=== PATIENT | female | born 1980 | race Caucasian/White ===

== ENCOUNTER 2018-01-02 16:00 | Outpatient (RCR) | payer OTHER, SELFPAY | END 2018-01-02 17:00 | disposition home or self-care (01) | LOC: PT 16:00 | PROVIDERS: Visit Provider Orthopaedic Surgery Adult Reconstructive Orthopaedic Surgery | DX: M54.5 Low back pain (principal); M25.511 Pain in right shoulder | CPT/HCPCS: 97110 ==

== ENCOUNTER 2018-04-03 16:00 | Outpatient (RCR) | payer OTHER, SELFPAY | END 2018-04-03 16:01 | disposition home or self-care (01) | LOC: PT 16:00 | PROVIDERS: Visit Provider Orthopaedic Surgery Adult Reconstructive Orthopaedic Surgery | DX: I89.0 Lymphedema, not elsewhere classified (principal) | CPT/HCPCS: 97110; 97140; 97162 ==

== ENCOUNTER 2018-09-21 12:26 | Observation (INO) ==
--- NOTE | 2018-09-21 12:47 | Emergency Department Note ---
ED Disposition Clinical Impression: Cellulitis Disposition: Admitted as Observation Condition on Discharge: Good Referrals: Radha Lenz [Primary Care Provider] - Time of Disposition: 13:56 - Critical Care Critical Care Time: No Attestation: On , the high probability of a clinically significant, sudden or life threatening deterioration of the following system(s) required my full and direct attention, intervention and personal management. The time I documented below is in addition to time spent performing reported procedures but includes the following listed in this critical care notation. Medical Decision Making - Osiel Inquiry Pt receiving controlled substance: No Osiel was queried for this patient: No Vital Signs: 09/21/18 12:33 Temperature 98.5 F Temperature Source Oral Pulse Rate [Left Radial] 91 H Respiratory Rate 18 Blood Pressure [Right Arm] 132/82 Blood Pressure Mean [Right Arm] 98 Blood Pressure Source [Right Arm] Automatic Cuff Blood Pressure Position [Right Arm] Sitting 02 Sat by Pulse Oximetry 99 Oxygen Delivery Method Room Air - Lab Data Lab Results 09/21/18 12:45: WBC 10.2, RBC 4.04 L, Hgb 12.0 L, Hct 36.9 L, MCV 91.2, MCH 29.8, MCHC 32.7, RDW 14.1, Plt Count 264, MPV 7.1 L, Neut % (Auto) 66.6, Lymph % (Auto) 25.6, [place] % (Auto) 4.5, Eos % (Auto) 2.8, Baso % (Auto) 0.5, Neut # (Auto) 6.8, Lymph # (Auto) 2.6, [place] # (Auto) 0.5, Eos # (Auto) 0.3, Baso # (Auto) 0.1, ESR 26 H 09/21/18 12:45: Sodium 141, Potassium 3.8, Chloride 102, Carbon Dioxide 31, Anion Gap 11.8, BUN 12, Creatinine 0.65, Estimated Creat Clear 99, Estimated GFR 101, Est GFR ( Amer) 122, Glucose 115 H, Calcium 8.9, Total Bilirubin 0.2, AST 30, ALT 48, Alkaline Phosphatase 102, C-Reactive Protein 3.5 H, Total Protein 7.4, Albumin 3.3 L, Globulin 4.1 H, Albumin/Globulin Ratio 0.8 L 09/21/18 12:45: Lactate 1.4 Result diagrams: 09/21/18 12:45 09/21/18 12:45 Orders (Tests/Meds): ED MEDICATIONS Generic Name Dose Route Start Last Admin Trade Name Freq PRN Reason Stop Dose Admin Sodium Chloride 1,000 mls @ 500 mls/hr 09/21/18 13:00 09/21/18 13:07 Sod Chlor 0.9% 1000ml Bag IV 09/21/18 14:59 500 mls/hr .Q2H DRAGAN Administration Ceftriaxone Sodium 2 gm/ 100 mls @ 200 mls/hr 09/21/18 13:00 09/21/18 13:07 Sodium Chloride IV 10/05/18 12:59 200 mls/hr Q24H DRAGAN Administration Protocol Vancomycin HCl 2,500 mg/ 250 mls @ 125 mls/hr 09/21/18 13:30 Sodium Chloride IV 09/21/18 15:29 ONCE ONE Discontinued Medications Generic Name Dose Route Start Last Admin Trade Name Freq PRN Reason Stop Dose Admin Miscellaneous 1 each 09/21/18 13:00 Vancomycin Consult Request * 10/21/18 12:59 CONSULT PHARMACY [facility] Oxycodone/Acetaminophen 1 each 09/21/18 12:52 09/21/18 13:07 Percocet 10mg/325mg Tablet PO 09/21/18 12:53 1 each ONCE ONE Administration ORDERS Category Date Time Status Blood Culture Stat Micro 09/21/18 12:45 Received Wound Culture and Gram Stain Stat Micro 09/21/18 12:43 Ordered General Adult HPI - General Chief complaint: PAIN Stated complaint: Left leg Possible Cellulitis Time Seen by Provider: 09/21/18 12:44 Mode of Arrival: Ambulatory Limitations: No Limitations Description of Symptoms (Recalled from ER Triage Doc. by RN): c/o pain in her lower left leg that she has been seen a few places for antibiotics but states it has not gotten any better and the pain has increased - History of Present Illness HPI narrative: two week history of cellulitis, evaluated multiply including [facility]. On doxy and keflex, worsening pain - Related Data Home Medications Medication Instructions Recorded Confirmed Citalopram Hydrobromide 20 mg PO DAILY 02/03/18 09/21/18 [Citalopram HBr] Furosemide [Furosemide 40MG tAB] 40 mg PO BID 02/03/18 09/21/18 Omeprazole [Omeprazole 40mg 40 mg PO DAILY 02/03/18 09/21/18 Capsule] levETIRAcetam [Keppra 500mg tablet] 500 mg PO BID 02/03/18 09/21/18 Potassium Chloride [Klor-con 20 20 meq PO DAILY 06/12/18 09/21/18 mEq tablet] albuterol sulfate HFA 90 1 puff INHALATION DAILY 16 Days 08/03/18 09/21/18 mcg/actuation aerosol inhaler #18 g cetirizine 10 mg tablet 10 mg PO DAILY 30 Days #30 tab 08/03/18 09/21/18 diclofenac sodium 75 mg 75 mg PO BID 30 Days #90 tab 08/03/18 09/21/18 tablet,delayed release montelukast 10 mg tablet 10 mg PO DAILY 30 Days #30 tab 08/03/18 09/21/18 Bacitracin [Bacitracin Zinc Oint 1 gm TOPICAL QID 09/21/18 09/21/18 30gm Tube] Phentermine HCl 37.5 mg PO DAILY 09/21/18 09/21/18 Sulfamethoxazole/Trimethoprim 1 each PO BID 09/21/18 09/21/18 [Bactrim DS tablet] cephALEXin [Keflex 500mg Cap] 500 mg PO Q6H 09/21/18 09/21/18 Allergies Allergy/AdvReac Type Severity Reaction Status Date / Time acetaminophen [From FIORICET] Allergy Unknown UNKNOWN Verified 08/03/18 14:32 butalbital [From FIORICET] Allergy Unknown UNKNOWN Verified 08/03/18 14:32 caffeine [From FIORICET] Allergy Unknown UNKNOWN Verified 08/03/18 14:32 codeine [CODEINE] Allergy Unknown SEIZURE, Verified 08/03/18 14:32 N/V [facility] History - Hepatitis A Screen Drug use history?: No High risk sexual behaviors?: No History of sexually transmitted infection?: No Currently employed?: No Childcare worker?: No Do you have indoor plumbing?: Yes Do you have electricity?: Yes Attestation statement:: This patient has been screened for Hepatitis A risk factors. I have reviewed the patient's past medical history: Yes Medical History: Reports:: Depression, Gastroesophageal Reflux Disease(GERD), Seizures Denies:: Cancer, Diabetes Mellitus Type 1, Diabetes Mellitus Type 2, Hypertension, MRSA Other Medical History: Reports: Other Laterality Cases: Bilateral: Tonsillectomy Other Surgeries: Yes: Appendectomy, Cholecystectomy, , Other Amputation: No Fractures: No - Social History Smoking Status: Current every day smoker Tobacco Type: cigarettes Alcohol Intake: never Substance Use Type: opiates - Psychiatric History Expresses thoughts of harming self/others: None Suicide Plan Description: No Plan Pschychiatric History:: Reports:: Depression Family Hx:: No significant family history ROS Obtained: Yes All systems reviewed & no additional complaints - Constitutional Constitutional: Reports system reviewed and no additional complaints, except as docu, Reports chills, Reports fatigue, Reports fever(s) - Eyes Eyes: Reports system reviewed and no additional complaints, except as docu, D enies change in vision - ENT Ears, Nose, Mouth, and Throat: Reports system reviewed and no additional complaints, except as docu, Denies sore throat, Denies throat swelling - Cardiovascular Cardiovascular: Reports system reviewed and no additional complaints, except as docu, Denies chest pain, Denies chest pain at rest, Denies diaphoresis - Respiratory Respiratory: Yes system reviewed and no additional complaints, except as docu, Yes chest congestion, Yes cough, No pain on inspiration, No pain with cough - Gastrointestinal Gastrointestingal: Reports: system reviewed and no additional complaints, except as docu. Denies: abdominal pain, diarrhea, vomiting - Musculoskeletal Musculoskeletal: Reports system reviewed and no additional complaints, except as docu, Denies muscle weakness - Integumentary/Breasts Skin/Breast: Reports system reviewed and no additional complaints, except as docu, Reports redness, Reports itching, Reports rash, Reports skin pain, Reports skin swelling, Reports wounds - Neurologic Neurologic: Reports system reviewed and no additional complaints, except as docu, Denies tingling/numbness/burning sensations, Denies seizure-like activity, Denies syncope - Hematologic/Lymphatic Henatologic/Lymphatic: Reports easy bleeding, Reports easy bruising Physical Exam - General General appearance: alert, in no apparent distress - Head Head exam: atraumatic - Eye Eye exam: Present: normal appearance. Absent: PERRL, EOMI, scleral icterus - ENT ENT exam: Present: normal exam, normal oropharynx, mucous membranes moist - Neck Neck exam: Present: normal inspection, full ROM - Respiratory Respiratory exam: Present: normal lung sounds bilaterally. Absent: respiratory distress, wheezes, stridor - Cardiovascular Cardiovascular exam: Present: regular rate, normal rhythm - Abdominal Exam Abdominal exam: Present: soft. Absent: tenderness - Extremities Exam Extremities exam: Present: tenderness, pedal edema, calf tenderness. Absent: normal inspection - Neurological Exam Neurological exam: Present: alert - Psychiatric Psychiatric exam: Present: normal affect, normal mood - Skin Skin exam: Present: warm, erythema, other (marked cellulitis, skin breakdown, weeping finch-yellow exudate). Absent: dry, intact, normal color, cyanosis
[2018-09-21 13:03] LABS: Basophils # 0.1 K/mm3 (0-0.2); Basophils % 0.5 % (0.1-2.0); Eosinophils # 0.3 K/mm3 (0.0-0.4); Eosinophils % 2.8 % (0.1-12.0); Hematocrit 36.9 % (37.0-47.0); Lymphocytes # 2.6 K/mm3 (0.7-4.5); Lymphocytes % 25.6 % (10-50); Mean Corpuscular HGB Conc 32.7 g/dL (31.8-35.4); Mean Corpuscular Hemoglobin 29.8 pg (27.0-31.2); Mean Corpuscular Volume 91.2 fl (81-99); Mean Platelet Volume 7.1 fl (7.4-10.4); Monocytes # 0.5 K/mm3 (0.1-1.0); Monocytes % 4.5 % (1.7-9.3); Neutrophils # 6.8 K/mm3 (1.8-7.8); Neutrophils % 66.6 % (37.0-80.0); Platelet Count 264 K/mm3 (142-424); Red Blood Count 4.04 M/mm3 (4.20-5.40); Red Cell Distribution Width 14.1 % (11.5-17.5); White Blood Count 10.2 K/mm3 (4.8-10.8)
[2018-09-21 13:12] LABS: Albumin Level 3.3 gm/dL (3.4-5.0); Albumin/Globulin Ratio 0.8 (1.1-1.8); Anion Gap 11.8 mEq/L (5-15); Bilirubin,Total 0.2 mg/dL (0.2-1.0); C-Reactive Protein 3.5 mg/L (0.0-0.9); Calcium 8.9 mg/dL (8.5-10.1); Globulin 4.1 gm/dl (1.3-3.2); Potassium 3.8 mmoL/L (3.5-5.1); Total Protein,Serum 7.4 gm/dL (6.4-8.2)
[2018-09-21 13:47] LABS: Erythrocyte Sedimentation Rate 26 mm/hr (0-20)
--- NOTE | 2018-09-21 14:29 | Pharmacy Consult Notes ---
- Pharmacy Consult Date: 09/21/18 Time: 14:28 Referring provider: DR. RAMIRES Reason for Consult:: VANCOMYCIN DOSING Allergies and ADEs:: Allergies Allergy/AdvReac Type Severity Reaction Status Date / Time acetaminophen [From FIORICET] Allergy Unknown UNKNOWN Verified 08/03/18 14:32 butalbital [From FIORICET] Allergy Unknown UNKNOWN Verified 08/03/18 14:32 caffeine [From FIORICET] Allergy Unknown UNKNOWN Verified 08/03/18 14:32 codeine [CODEINE] Allergy Unknown SEIZURE, Verified 08/03/18 14:32 N/V Home Medications:: Home Medications Medication Instructions Recorded Confirmed Type Citalopram Hydrobromide 20 mg PO DAILY 02/03/18 09/21/18 History [Citalopram HBr] Furosemide [Furosemide 40MG tAB] 40 mg PO BID 02/03/18 09/21/18 History Omeprazole [Omeprazole 40mg 40 mg PO DAILY 02/03/18 09/21/18 History Capsule] levETIRAcetam [Keppra 500mg tablet] 500 mg PO BID 02/03/18 09/21/18 History Potassium Chloride [Klor-con 20 20 meq PO DAILY 06/12/18 09/21/18 History mEq tablet] albuterol sulfate HFA 90 1 puff INHALATION DAILY 16 Days 08/03/18 09/21/18 History mcg/actuation aerosol inhaler #18 g cetirizine 10 mg tablet 10 mg PO DAILY 30 Days #30 tab 08/03/18 09/21/18 History diclofenac sodium 75 mg 75 mg PO BID 30 Days #90 tab 08/03/18 09/21/18 History tablet,delayed release montelukast 10 mg tablet 10 mg PO DAILY 30 Days #30 tab 08/03/18 09/21/18 History Bacitracin [Bacitracin Zinc Oint 1 gm TOPICAL QID 09/21/18 09/21/18 History 30gm Tube] Phentermine HCl 37.5 mg PO DAILY 09/21/18 09/21/18 History Sulfamethoxazole/Trimethoprim 1 each PO BID 09/21/18 09/21/18 History [Bactrim DS tablet] cephALEXin [Keflex 500mg Cap] 500 mg PO Q6H 09/21/18 09/21/18 History Height: 1.63 m Weight: 129.727 kg Laboratory Results:: Laboratory Results - last 24 hr 09/21/18 12:45: WBC 10.2, RBC 4.04 L, Hgb 12.0 L, Hct 36.9 L, MCV 91.2, MCH 29.8, MCHC 32.7, RDW 14.1, Plt Count 264, MPV 7.1 L, Neut % (Auto) 66.6, Lymph % (Auto) 25.6, [place] % (Auto) 4.5, Eos % (Auto) 2.8, Baso % (Auto) 0.5, Neut # (Auto) 6.8, Lymph # (Auto) 2.6, [place] # (Auto) 0.5, Eos # (Auto) 0.3, Baso # (Auto) 0.1, ESR 26 H 09/21/18 12:45: Sodium 141, Potassium 3.8, Chloride 102, Carbon Dioxide 31, Anion Gap 11.8, BUN 12, Creatinine 0.65, Estimated Creat Clear 99, Estimated GFR 101, Est GFR ( Amer) 122, Glucose 115 H, Calcium 8.9, Total Bilirubin 0.2, AST 30, ALT 48, Alkaline Phosphatase 102, C-Reactive Protein 3.5 H, Total Protein 7.4, Albumin 3.3 L, Globulin 4.1 H, Albumin/Globulin Ratio 0.8 L 09/21/18 12:45: Lactate 1.4 Medical History: Reports:: Depression, Gastroesophageal Reflux Disease(GERD), Seizures Denies:: Cancer, Diabetes Mellitus Type 1, Diabetes Mellitus Type 2, Hypertension, MRSA Assessment and Plan - Assessment and plan all Dx Assessment and Plan for all problems:: BASED ON PATIENT FACTORS, RECOMMEND VANCOMYCIN 2500 MG IV ONCE, FOLLOWED BY VANCOMYCIN 2250 MG IV Q12H. PHARMACY WILL FOLLOW DAILY AND ADJUST APPROPRIATE.
--- NOTE | 2018-09-21 14:58 | Pharmacy Consult Notes ---
[facility] Pharmacy VTE Monitoring - Patient Demographics Admission date: 09/21/18 Report Date: 09/21/18 Time: 14:57 Allergies/Adverse Reactions: Patient Allergies acetaminophen [From FIORICET] Allergy (Unknown, Verified 08/03/18 14:32) UNKNOWN butalbital [From FIORICET] Allergy (Unknown, Verified 08/03/18 14:32) UNKNOWN caffeine [From FIORICET] Allergy (Unknown, Verified 08/03/18 14:32) UNKNOWN codeine [CODEINE] Allergy (Unknown, Verified 08/03/18 14:32) SEIZURE, N/V Height: 1.63 m Weight: 129.727 kg Patient Problems: Current Active Problems Cellulitis (Acute) - VTE Risk Labs: VTE Related Lab Results Hgb 12.0 g/dL (12.2-16.2) L 09/21/18 12:45 Hct 36.9 % (37.0-47.0) L 09/21/18 12:45 Plt Count 264 K/mm3 (142-424) 09/21/18 12:45 BUN 12 mg/dL (7-18) 09/21/18 12:45 Creatinine 0.65 mg/dL (0.55-1.02) 09/21/18 12:45 Estimated Creat Clear 99 mL/min (50-200) 09/21/18 12:45 Was VTE Risk Assessment Performed: Yes Clinical Trial Participant: No - Prophylaxis VTE Prophylaxis Ordered?: Yes Types of VTE Prophylaxis: TEDS Knee High (TO LEG UNAFFECTED BY CELLULITIS)
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
[2018-09-22 07:19] LABS: Basophils % 0.4 % (0.1-2.0); Eosinophils # 0.3 K/mm3 (0.0-0.4); Eosinophils % 3.7 % (0.1-12.0); Hematocrit 35.6 % (37.0-47.0); Lymphocytes # 1.6 K/mm3 (0.7-4.5); Mean Corpuscular HGB Conc 33.5 g/dL (31.8-35.4); Mean Corpuscular Hemoglobin 30.5 pg (27.0-31.2); Mean Corpuscular Volume 90.9 fl (81-99); Mean Platelet Volume 7.7 fl (7.4-10.4); Monocytes # 0.4 K/mm3 (0.1-1.0); Neutrophils # 5.3 K/mm3 (1.8-7.8); Neutrophils % 69.8 % (37.0-80.0); Platelet Count 250 K/mm3 (142-424); Red Blood Count 3.92 M/mm3 (4.20-5.40); Red Cell Distribution Width 14.3 % (11.5-17.5); White Blood Count 7.6 K/mm3 (4.8-10.8)
[2018-09-22 07:42] LABS: Calcium 7.9 mg/dL (8.5-10.1)
--- NOTE | 2018-09-22 11:20 | Progress Note ---
Internal Medicine - PN: Subj *Date: 09/22/18 *Time: 09:20 Interval history: Patient was seen by wound care and her wound was cleaned and wrapped appropriately today. She is still complaining of pain. Her suboxone clinic was called and they prefer her not to be on any pain meds. Will optimize pain management with non-narcotics. Exam Vital signs and Labs for Last 24 Hours: Temp Pulse Resp BP Pulse Ox 98.0 F 86 20 116/82 95 09/22/18 08:00 09/22/18 08:00 09/22/18 08:00 09/22/18 08:00 09/22/18 08:00 Laboratory Results - last 24 hr 09/21/18 12:45: WBC 10.2, RBC 4.04 L, Hgb 12.0 L, Hct 36.9 L, MCV 91.2, MCH 29.8, MCHC 32.7, RDW 14.1, Plt Count 264, MPV 7.1 L, Neut % (Auto) 66.6, Lymph % (Auto) 25.6, [place] % (Auto) 4.5, Eos % (Auto) 2.8, Baso % (Auto) 0.5, Neut # (Auto) 6.8, Lymph # (Auto) 2.6, [place] # (Auto) 0.5, Eos # (Auto) 0.3, Baso # (Auto) 0.1, ESR 26 H 09/21/18 12:45: Sodium 141, Potassium 3.8, Chloride 102, Carbon Dioxide 31, Anion Gap 11.8, BUN 12, Creatinine 0.65, Estimated Creat Clear 99, Estimated GFR 101, Est GFR ( Amer) 122, Glucose 115 H, Calcium 8.9, Total Bilirubin 0.2, AST 30, ALT 48, Alkaline Phosphatase 102, C-Reactive Protein 3.5 H, Total Protein 7.4, Albumin 3.3 L, Globulin 4.1 H, Albumin/Globulin Ratio 0.8 L 09/21/18 12:45: Lactate 1.4 09/22/18 05:35: WBC 7.6 D, RBC 3.92 L, Hgb 12.0 L, Hct 35.6 L, MCV 90.9, MCH 30.5, MCHC 33.5, RDW 14.3, Plt Count 250, MPV 7.7, Neut % (Auto) 69.8, Lymph % (Auto) 21.0, [place] % (Auto) 5.0, Eos % (Auto) 3.7, Baso % (Auto) 0.4, Neut # (Auto) 5.3, Lymph # (Auto) 1.6, [place] # (Auto) 0.4, Eos # (Auto) 0.3, Baso # (Auto) 0.0 09/22/18 05:35: Sodium 141, Potassium 4.0, Chloride 106, Carbon Dioxide 27, Anion Gap 12.0, BUN 15, Creatinine 0.78, Estimated Creat Clear 83, Estimated GFR 82, Est GFR ( Amer) 99, Glucose 117 H, Calcium 7.9 L D I & O for Last 24 hours: Intake & Output 09/19/18 09/20/18 09/21/18 09/22/18 11:59 11:59 11:59 11:59 Intake Total 3217 / 3217 Balance 3217 / 3217 Weight 291 lb Microbiology Reports for the Last 24 Hours: Microbiology 09/21/18 15:55 Ankle,Left Gram Stain - Final 09/21/18 15:55 Ankle,Left Wound Culture - Preliminary Gram Negative Rods - *Routine HEENT Exam Head: Present: normocephalic Eye: Present: EOMI ENT: Present: mucous membranes moist - *Routine Neck Exam Present: supple - *Routine Respiratory Exam Present: CTA bilaterally - *Routine Cardiovascular Exam Present: RRR - *Routine Abdominal Exam Present: soft, normoactive bowel sounds - *Routine Extremities Exam Present: edema (2+ pitting edema), tenderness (erythema noted bilaterally; left leg wrapped per wound care) - *Routine Skin Exam Present: intact, wounds (from cellulitis on left lower leg) - *Routine Neurological Exam Present: alert - Routine Psychiatric Exam Present: normal affect Assessment and Plan (1) Cellulitis Current visit: Yes Status: Acute Qualifiers: Category: Medical Code(s): L03.90 - Cellulitis, unspecified (2) Bilateral leg edema Current visit: Yes Status: Acute Category: Medical Code(s): R60.0 - Localized edema (3) Pseudomonas infection Current visit: Yes Status: Acute Category: Medical Code(s): B96.5 - Pseudomonas (aeruginosa) (mallei) (pseudomallei) as the cause of diseases classified elsewhere (4) Depression Current visit: Yes Status: Chronic Category: Medical Code(s): F32.9 - Major depressive disorder, single episode, unspecified (5) GERD (gastroesophageal reflux disease) Current visit: Yes Status: Chronic Category: Medical Code(s): K21.9 - Gastro-esophageal reflux disease without esophagitis (6) History of seizures Current visit: Yes Status: Chronic Category: Medical Code(s): Z87.898 - Personal history of other specified conditions (7) Obesity Current visit: Yes Status: Chronic Qualifiers: Body mass index: BMI 45.0-49.9 Category: Medical Code(s): E66.9 - Obesity, unspecified (8) Tobacco use disorder Current visit: Yes Status: Chronic Category: Medical Code(s): F17.200 - Nicotine dependence, unspecified, uncomplicated (9) Cellulitis of leg without foot, left Current visit: No Status: Acute Category: Medical Code(s): L03.116 - Cellulitis of left lower limb - Assessment and plan all Dx Assessment and Plan for all problems:: continue IV abx for now, will switch to PO when sensitives are back. Will stop all narcotic pain meds. Possible discharge in 1-2 days with wound care f/u as outpatient.
--- NOTE | 2018-09-22 12:16 | Discharge Summary ---
General - General Admission date:: 09/21/18 Discharge date: 09/22/18 HPI HPI: Ms. Lamb is a 38-year-old female with a history of depression, GERD, seizures, obesity, and tobacco use disorder who presented to [facility] emergency room with ongoing cellulitis of the left lower extremity. She initially was seen by a nurse practitioner in [place] and started on an antibiotic. She completed a course of Keflex and the cellulitis actually worsen. She describes the left leg as being worse than the right. Does she went to [facility] emergency room and was started on doxycycline and Keflex. Culture completed there showed Pseudomonas. She has been on these antibiotics for 4 days without any improvement. The pain has become unbearable and thus she presented to the [facility] ER. With evaluation in the ER she was noted to have the cellulitis of the left lower leg and some redness and papular outbreak on the right lower leg. With her failure of treatment as an outpatient she was admitted for IV antibiotics. At the time of this exam patient describes burning in her left lower leg. She denies having a fever. He has had difficulty with ambulation due to the pain, edema, and drainage. She cannot stand for anything to touch the left lower leg. Hospital Course Hospital Course: She was admitted to our facility for cellulitis of bilateral extremities after failing outpatient treatment with Keflex and Septra. Upon admission pain control was her biggest issue as she goes to Suboxone clinic. Her last dose of Suboxone was on 09/20/2018 and she endorsed taking 8 mg as instructed by her pain clinic. However on 09/21/2018 she was in extreme pain from her cellulitis, so she got 1 dose of Dilaudid in the ER. I had started her on some Toradol for moderate pain and morphine for extreme pain. She also ended up getting 1 dose of Dilaudid at 2 AM. On 09/22/2018, patient was seen by wound care and her wound was cleansed and wrapped in Unna boot. I have contacted the Suboxone clinic via our case monitor. They have instructed us not to give any pain medication that is narcotic for the patient. I have voiced this to the patient and mentioned that we have to optimize her pain management with the nonnarcotic medications. Upon gaining this insight from this about clinic her morphine and Dilaudid was discontinued. Upon being medically stable she was discharged home on 09/22/2018 with 2 antibiotics, Omnicef and Levaquin for her Pseudomonas cellulitis. She was advised to follow-up with wound care as an outpatient basis, which was already set up by our case monitor. She was also advised to follow-up with her Suboxone clinic and her PCP within the next week or 2. Patient voiced to all the above. She mentioned that her will be back until 5 PM for her to go home. Patient is expected to go home after 5 PM today. Objective Vital signs: Temp Pulse Resp BP Pulse Ox 98.0 F 86 20 116/82 95 09/22/18 08:00 09/22/18 08:00 09/22/18 08:00 09/22/18 08:00 09/22/18 08:00 - *Routine HEENT Exam Head: Present: normocephalic Eye: Present: EOMI, PERRL ENT: Present: mucous membranes moist - *Routine Neck Exam Present: supple - *Routine Respiratory Exam Present: CTA bilaterally. Absent: accessory muscle use - *Routine Cardiovascular Exam Present: RRR - *Routine Abdominal Exam Present: soft, normoactive bowel sounds - *Routine Extremities Exam Present: edema (2+ bilaterally), tenderness (erythema noted bilaterally) - *Routine Skin Exam Present: intact, erythema (left leg in unna boot) - *Routine Neurological Exam Present: alert, oriented X3 - Routine Psychiatric Exam Present: normal affect Results Labs on day of discharge: Labs from last 24 hours 09/22/18 09/22/18 09/21/18 05:35 05:35 12:45 WBC 7.6 D RBC 3.92 L Hgb 12.0 L Hct 35.6 L MCV 90.9 MCH 30.5 MCHC 33.5 RDW 14.3 Plt Count 250 MPV 7.7 Neut % (Auto) 69.8 Lymph % (Auto) 21.0 [place] % (Auto) 5.0 Eos % (Auto) 3.7 Baso % (Auto) 0.4 Neut # (Auto) 5.3 Lymph # (Auto) 1.6 [place] # (Auto) 0.4 Eos # (Auto) 0.3 Baso # (Auto) 0.0 ESR Sodium 141 Potassium 4.0 Chloride 106 Carbon Dioxide 27 Anion Gap 12.0 BUN 15 Creatinine 0.78 Estimated Creat Clear 83 Estimated GFR 82 Est GFR ( Amer) 99 Glucose 117 H Lactate 1.4 Calcium 7.9 L D Total Bilirubin AST ALT Alkaline Phosphatase C-Reactive Protein Total Protein Albumin Globulin Albumin/Globulin Ratio 09/21/18 09/21/18 12:45 12:45 WBC 10.2 RBC 4.04 L Hgb 12.0 L Hct 36.9 L MCV 91.2 MCH 29.8 MCHC 32.7 RDW 14.1 Plt Count 264 MPV 7.1 L Neut % (Auto) 66.6 Lymph % (Auto) 25.6 [place] % (Auto) 4.5 Eos % (Auto) 2.8 Baso % (Auto) 0.5 Neut # (Auto) 6.8 Lymph # (Auto) 2.6 [place] # (Auto) 0.5 Eos # (Auto) 0.3 Baso # (Auto) 0.1 ESR 26 H Sodium 141 Potassium 3.8 Chloride 102 Carbon Dioxide 31 Anion Gap 11.8 BUN 12 Creatinine 0.65 Estimated Creat Clear 99 Estimated GFR 101 Est GFR ( Amer) 122 Glucose 115 H Lactate Calcium 8.9 Total Bilirubin 0.2 AST 30 ALT 48 Alkaline Phosphatase 102 C-Reactive Protein 3.5 H Total Protein 7.4 Albumin 3.3 L Globulin 4.1 H Albumin/Globulin Ratio 0.8 L Preliminary micro results at discharge 09/21/18 15:55 Wound Culture - Preliminary Ankle,Left Gram Negative Rods DS: Diagnosis - Discharge Diagnosis (1) Cellulitis Status: Acute (2) Bilateral leg edema Status: Acute (3) Pseudomonas infection Status: Acute (4) Depression Status: Chronic (5) GERD (gastroesophageal reflux disease) Status: Chronic (6) History of seizures Status: Chronic (7) Obesity Status: Chronic (8) Tobacco use disorder Status: Chronic (9) Cellulitis of leg without foot, left Status: Acute Discharge Plan - Patient Discharge Instructions Patient Instructions: DI for Cellulitis -- Adult - Follow up Plan Disposition: Home, Self-Usp Medications: Home Medications Medication Instructions Recorded Confirmed Type Citalopram Hydrobromide 20 mg PO DAILY 02/03/18 09/21/18 History [Citalopram HBr] Furosemide [Furosemide 40MG tAB] 40 mg PO DAILY 02/03/18 09/21/18 History Omeprazole [Omeprazole 40mg 40 mg PO BID 02/03/18 09/21/18 History Capsule] levETIRAcetam [Keppra 500mg tablet] 500 mg PO BID 02/03/18 09/21/18 History Potassium Chloride [Klor-con 20 20 meq PO DAILY 06/12/18 09/21/18 History mEq tablet] albuterol sulfate HFA 90 1 puff INHALATION NEEDED PRN 16 08/03/18 09/21/18 History mcg/actuation aerosol inhaler Days #18 g cetirizine 10 mg tablet 10 mg PO DAILY 30 Days #30 tab 08/03/18 09/21/18 History diclofenac sodium 75 mg 75 mg PO NEEDED PRN 30 Days #90 08/03/18 09/21/18 History tablet,delayed release tab Bacitracin [Bacitracin Zinc Oint 1 gm TOPICAL QID 09/21/18 09/21/18 History 30gm Tube] Phentermine HCl 37.5 mg PO DAILY 09/21/18 09/21/18 History Sulfamethoxazole/Trimethoprim 1 each PO BID 09/21/18 09/21/18 History [Bactrim DS tablet] cephALEXin [Keflex 500mg Cap] 500 mg PO Q6H 09/21/18 09/21/18 History Cefdinir [Omnicef 300mg Capsule] 600 mg PO DAILY 14 Days #14 capsule 09/22/18 Rx Diclofenac Sodium [Diclofenac 75mg 75 mg PO BID #20 tab 09/22/18 Rx Tab] levoFLOXacin [Levaquin 750mg 750 mg PO DAILY 14 Days #14 tab 09/22/18 Rx tablet] Prescriptions/Medication Reconciliation: New Diclofenac Sodium [Diclofenac 75mg Tab] 75 mg PO BID #20 tab Cefdinir [Omnicef 300mg Capsule] 600 mg PO DAILY 14 Days #14 capsule levoFLOXacin [Levaquin 750mg tablet] 750 mg PO DAILY 14 Days #14 tab Continue albuterol sulfate HFA 90 mcg/actuation aerosol inhaler 1 puff INHALATION NEEDED PRN 16 Days #18 g PRN Reason: shortness of breath diclofenac sodium 75 mg tablet,delayed release 75 mg PO NEEDED PRN 30 Days #90 tab PRN Reason: pain cetirizine 10 mg tablet 10 mg PO DAILY 30 Days #30 tab Furosemide [Furosemide 40MG tAB] 40 mg PO DAILY Citalopram Hydrobromide [Citalopram HBr] 20 mg PO DAILY Potassium Chloride [Klor-con 20 mEq tablet] 20 meq PO DAILY Phentermine HCl 37.5 mg PO DAILY Sulfamethoxazole/Trimethoprim [Bactrim DS tablet] 1 each PO BID Bacitracin [Bacitracin Zinc Oint 30gm Tube] 1 gm TOPICAL QID Omeprazole [Omeprazole 40mg Capsule] 40 mg PO BID levETIRAcetam [Keppra 500mg tablet] 500 mg PO BID cephALEXin [Keflex 500mg Cap] 500 mg PO Q6H
== END 2018-09-22 20:01 | disposition home or self-care (01) ==
LOC: ER 12:26 → 2ND 12:26
PROVIDERS: ADMIT Emergency Medicine; ATTEND Emergency Medicine
DX: E66.9 Obesity, unspecified; F11.11 Opioid abuse, in remission; Z91.018 Allergy to other foods; L53.9 Erythematous condition, unspecified; B96.5 Pseudomonas (aeruginosa) (mallei) (pseudomallei) as the cause of diseases classified elsewhere; Z68.42 Body mass index [BMI] 45.0-49.9, adult; L03.116 Cellulitis of left lower limb; Z88.6 Allergy status to analgesic agent; Z79.899 Other long term (current) drug therapy; Z72.0 Tobacco use; B95.7 Other staphylococcus as the cause of diseases classified elsewhere; F32.9 Major depressive disorder, single episode, unspecified; Z79.51 Long term (current) use of inhaled steroids; Z87.898 Personal history of other specified conditions; R60.0 Localized edema; K21.9 Gastro-esophageal reflux disease without esophagitis
CPT/HCPCS: 36415; 80048; 80053; 83605; 85025; 85651; 86140; 87040; 87070; 87077; 87186; 87205; 96365; 96367; 96375; 99283; G0378; J2543; J3370

== ENCOUNTER → 2018-10-23 17:29 | Outpatient (CLI) | payer OTHER, SELFPAY | PROVIDERS: PCP Nurse Practitioner Family; Visit Provider Nurse Practitioner Family | DX: L03.116 Cellulitis of left lower limb (principal) | CPT/HCPCS: 87070; 87077; 87186; 87205 ==

== ENCOUNTER 2018-10-30 13:30 | Outpatient (RCR) | payer OTHER, SELFPAY | END 2018-10-30 13:35 | disposition home or self-care (01) | LOC: PT 13:30 | PROVIDERS: Visit Provider Nurse Practitioner Family | DX: L03.116 Cellulitis of left lower limb (principal); L03.115 Cellulitis of right lower limb | CPT/HCPCS: 29580; 87070; 87077; 87186; 87205; 97162; 97164; 97597 ==

== ENCOUNTER → 2020-02-15 15:11 | Outpatient (CLI) | payer OTHER, SELFPAY ==
[2020-02-15 15:37] LABS: Chloride 103 mmol/L (98-107); Potassium 3.7 mmoL/L (3.5-5.1); Sodium 139 mmol/L (136-145)
[2020-02-15 15:40] LABS: Alanine Aminotransferase 44 U/L (12-78); Albumin/Globulin Ratio 1.4 (1.1-1.8); Alkaline Phosphatase 79 U/L (38-126); Anion Gap 7.7 mEq/L (5-15); Aspartate Amino Transferase 71 U/L (14-36); Bilirubin,Total 0.2 mg/dl (0.2-1.3); Blood Urea Nitrogen 8 mg/dl (7-17); Carbon Dioxide 32 mmol/L (22.0-30.0); Cholesterol 137 mg/dl (140-200); Estimated Glomerular Filt Rate 110 ml/min (>60); GFR (African American) 133 ML/MIN (>60); Globulin 2.8 g/dL (1.3-3.2); Glucose 99 mg/dl (74-100); Total Protein,Serum 6.8 g/dl (6.3-8.2); Triglycerides 210 mg/dl (30-150); VLDL Cholesterol 42 mg/dL (0-40)
[2020-02-15 15:41] LABS: Chol/HDL Ratio 3.8 (1-3.5); HDL Cholesterol 36 mg/dl (40-60)
[2020-02-15 15:42] LABS: Basophils # 0.1 K/mm3 (0-0.2); Basophils % 0.6 % (0.1-2.0); Eosinophils # 0.4 K/mm3 (0.0-0.4); Eosinophils % 3.3 % (0.1-12.0); Hematocrit 38.8 % (37.0-47.0); Lymphocytes # 3.9 K/mm3 (0.7-4.5); Lymphocytes % 32.6 % (10-50); Mean Corpuscular HGB Conc 33.6 g/dL (31.8-35.4); Mean Corpuscular Hemoglobin 30.2 pg (27.0-31.2); Mean Corpuscular Volume 89.8 fl (81-99); Mean Platelet Volume 8.4 fl (7.4-10.4); Monocytes # 0.5 K/mm3 (0.1-1.0); Monocytes % 3.9 % (1.7-9.3); Neutrophils # 7.2 K/mm3 (1.8-7.8); Neutrophils % 59.6 % (37.0-80.0); Platelet Count 249 K/mm3 (142-424); Red Blood Count 4.32 M/mm3 (4.20-5.40); Red Cell Distribution Width 14.8 % (11.5-17.5); White Blood Count 12.1 K/mm3 (4.8-10.8)
[2020-02-15 15:52] LABS: Direct LDL Cholesterol 101.28 mg/dL (100-129)
[2020-02-15 15:57] LABS: Free T4 (Free Thyroxine) 0.84 ng/dl (0.78-2.19)
[2020-02-15 16:11] LABS: Thyroid Stimulating Hormone 3.36 uIU/mL (0.465-4.68)
[2020-02-18 09:12] LABS: Hep A Ab, IgM Negative (Negative); Hepatitis B Core Antibody IgM Negative (Negative); Hepatitis B Surface Antigen Negative (Negative)
[2020-02-18 12:05] LABS: Hepatitis C Antibody <0.1 s/co ratio (0.0-0.9)
== END ==
PROVIDERS: Physician Assistant; Visit Provider Emergency Medicine
DX: R74.8 Abnormal levels of other serum enzymes (principal); R19.7 Diarrhea, unspecified; M79.2 Neuralgia and neuritis, unspecified; E66.9 Obesity, unspecified; F17.200 Nicotine dependence, unspecified, uncomplicated; Z79.899 Other long term (current) drug therapy
CPT/HCPCS: 80053; 80061; 80074; 82652; 84439; 84443; 85025

== ENCOUNTER → 2020-02-23 13:45 | Outpatient (CLI) | payer OTHER, SELFPAY ==
--- NOTE | 2020-02-23 13:55 | MM_ITS ---
PROCEDURE: MM DIG SCREENING MAMM BI W/CAD Digital Breast Tomosynthesis Included CLINICAL INDICATION: screening There is no personal or family history of breast cancer. COMPARISON: This is a baseline screening exam TECHNIQUE: Standard CC and MLO images and 3D Tomosynthesis was obtained. R2 CAD reviewed. FINDINGS: Moderate scattered fibroglandular densities are seen throughout both breasts. There are few scattered benign-appearing microcalcifications in each breast. There is a subtle asymmetric density central portion of the right breast and even with vianney images is difficult to definitely determine whether it represents a true mass. Recommend the patient return for spot compression views and possibly ultrasound if this proved to be a true lesion. IMPRESSION: Fibrofatty parenchyma with asymmetric density right breast BI-RAD Category: 0 Need Additional Imaging Evaluation FOLLOW-UP: IMM Immediate Follow-up Recommended (A letter has been sent to the patient regarding results of the study.) Dictated by: Dr. Max Cerrato MD 02/27/2020 08:[address] Max Cerrato MD in [place] 02/27/2020 08:44
== END ==
PROVIDERS: PCP Emergency Medicine; Visit Provider Emergency Medicine
DX: Z12.31 Encounter for screening mammogram for malignant neoplasm of breast (principal)
CPT/HCPCS: 77063; 77067

== ENCOUNTER → 2020-03-09 13:00 | Outpatient (CLI) | payer OTHER, SELFPAY ==
--- NOTE | 2020-03-09 13:00 | US_ITS ---
PROCEDURE: US BREAST RT COMPLETE CLINICAL INDICATION: Abnormal mamm COMPARISON: MM DIG SCREENING MAMM BI W/CAD from 02/23/2020 MM DIG MAMM DX UNILAT RT CAD from 03/09/2020 FINDINGS: No discrete cystic or solid lesion is evident by ultrasound. Mammogram did demonstrate a 1.6 cm nodule in the central aspect of the right breast. There are few small nodes in the axilla. IMPRESSION: Unremarkable right breast ultrasound. Biopsy of the right breast is recommended based on the mammogram and could be attempted by the stereotactic approach. Dictated by: Raoul Meléndez MD 03/17/2020 12:54 Electronically signed by Raoul Meléndez MD in [place] 03/17/2020 12:54
--- NOTE | 2020-03-09 13:36 | MM_ITS ---
PROCEDURE: MM DIG MAMM DX UNILAT RT CAD Digital Breast Tomosynthesis Included CLINICAL INDICATION: abn mamm COMPARISON: MM DIG SCREENING MAMM BI W/CAD from 02/23/2020 US BREAST RT COMPLETE from 03/09/2020 TECHNIQUE: Standard CC and MLO images and 3D Tomosynthesis was obtained. R2 CAD reviewed. FINDINGS: Spot compression views in the MLO and CC projection show the oval density to represent a true lesion. He has smooth well-defined borders measuring 1. 9 x 1.7 cm on the spot compression CC view. Ultrasound performed the same date showed an oval hypoechoic lesion at the 2 o'clock position near the nipple corresponding in size and location measuring 1 point 8 cm in longest axis diameter. This almost surely represents a fibroadenoma however in view of its size and the fact that this is a baseline study I would recommend biopsy with ultrasound guidance. IMPRESSION: Oval benign-appearing solid lesion likely a fibroadenoma but recommend ultrasound guided biopsy BI-RAD Category: 4 FOLLOW-UP: Biopsy recommended (A letter has been sent to the patient regarding results of the study.) Dictated by: Dr. Max Cerrato MD 03/11/2020 16:[address] Max Cerrato MD in [place] 03/11/2020 16:58
== END ==
PROVIDERS: PCP Emergency Medicine; Visit Provider Emergency Medicine
DX: R92.8 Other abnormal and inconclusive findings on diagnostic imaging of breast (principal)
CPT/HCPCS: 76641; 77061; 77065; G0279

== ENCOUNTER → 2020-04-05 09:40 | Outpatient (CLI) | payer OTHER, SELFPAY ==
--- NOTE | 2020-04-05 09:41 | MM_ITS ---
PROCEDURE: MM STEREOTACTIC LOC RT CLINICAL INDICATION: abnormal mamm Abnormal mammogram showing right breast nodule TECHNIQUE: The patient was given 1 mg of Xanax, Lortab 7.5 mg, and analgesia and minor sedation. The patient was placed on the stereotactic table and the abnormality was localized in the most appropriate projection. The breast was prepped in the routine manner, with sterile prep and the overlying skin anesthetized. A 3 to 4 mm skin incision was performed and the 9 gauge sorus vacuum-assisted core biopsy needle was advanced to the region of the calcification. Pre- and post fire images were obtained. After adequate positioning , multiple biopsies were obtained in the region of the region of interest. Post biopsy stereo pair showed adequate sampling of the nodule.. The patient tolerated the procedure well without complications. A tiny titanium nonferromagnetic MicroMark was positioned through the mammotome needle into the biopsy site. Pathology: Complex fibroadenoma with usual ductal hyperplasia and focal atypical ductal hyperplasia. No in situ or invasive carcinoma identified IMPRESSION: Uneventful and successful stereotactic directed biopsy of the right breast of the right breast nodule. The pathology did demonstrate a complex fibroadenoma. There was however FOCAL ATYPICAL DUCTAL HYPERPLASIA. Atypical ductal hyperplasia CAN BE SEEN IN ASSOCIATION WITH DUCTAL CARCINOMA IN SITU THEREFORE, EXCISIONAL BIOPSY IS RECOMMENDED WITH HOOKWIRE GUIDANCE. BREAST MAMMOGRAM: Compared to the prior study, the previously noted nodular area of interest has been biopsied with post biopsy changes in the central aspect of the right breast with biopsy clip in place.. A small MicroMark clip was inserted into the region of the calcifications. There is evidence of soft tissue changes in the region of the biopsy was soft tissue gas and edema. 1. Adequate placement of the MicroMark clip postbiopsy. 2. Postbiopsy changes within the breast. Dictated by: Raoul Meléndez MD 04/07/2020 18:25 Electronically signed by Raoul Meléndez MD in [place] 04/07/2020 18:25
== END ==
PROVIDERS: PCP Emergency Medicine; Visit Provider Emergency Medicine
DX: R92.8 Other abnormal and inconclusive findings on diagnostic imaging of breast (principal)
CPT/HCPCS: 19081; 77065

== ENCOUNTER → 2020-08-19 13:21 | Outpatient (CLI) | payer OTHER, SELFPAY ==
[2020-08-19 15:14] LABS: HCG Qualitative, Serum Negative (Negative)
[2020-08-19 15:25] LABS: Coronavirus 19 IgG Antibody Negative (Negative); Coronavirus 19 IgM Antibody Negative (Negative)
== END ==
PROVIDERS: Visit Provider Internal Medicine Gastroenterology
DX: Z01.818 Encounter for other preprocedural examination (principal); Z13.810 Encounter for screening for upper gastrointestinal disorder; K21.9 Gastro-esophageal reflux disease without esophagitis
CPT/HCPCS: 36415; 84703; 86328

== ENCOUNTER → 2021-05-09 17:44 | Outpatient (CLI) | payer OTHER, SELFPAY ==
[2021-05-09 19:17] LABS: Basophils # 0.1 K/mm3 (0-0.2); Basophils % 1.3 % (0.1-2.0); Eosinophils # 0.4 K/mm3 (0.0-0.4); Eosinophils % 3.8 % (0.1-12.0); Hematocrit 44.3 % (37.0-47.0); Hemoglobin 14.8 g/dL (12.2-16.2); Lymphocytes # 2.8 K/mm3 (0.7-4.5); Lymphocytes % 28.7 % (10-50); Mean Corpuscular HGB Conc 33.6 g/dL (31.8-35.4); Mean Corpuscular Hemoglobin 30.7 pg (27.0-31.2); Mean Corpuscular Volume 91.5 fl (81-99); Mean Platelet Volume 9.5 fl (7.4-10.4); Monocytes # 0.4 K/mm3 (0.1-1.0); Monocytes % 4.3 % (1.7-9.3); Neutrophils % 61.9 % (37.0-80.0); Platelet Count 263 K/mm3 (142-424); Red Blood Count 4.84 M/mm3 (4.20-5.40); White Blood Count 9.6 K/mm3 (4.8-10.8)
[2021-05-09 19:34] LABS: Alanine Aminotransferase 38 U/L (12-78); Albumin Level 4.5 g/dl (3.5-5.0); Albumin/Globulin Ratio 1.4 (1.1-1.8); Alkaline Phosphatase 81 U/L (38-126); Anion Gap 13.2 mEq/L (5-15); Aspartate Amino Transferase 37 U/L (14-36); Bilirubin,Total 0.3 mg/dl (0.2-1.3); Blood Urea Nitrogen 15 mg/dl (7-17); Calcium 9.7 mg/dl (8.4-10.2); Carbon Dioxide 32 mmol/L (22.0-30.0); Chloride 100 mmol/L (98-107); Chol/HDL Ratio 4.6 (1-3.5); Cholesterol 202 mg/dl (140-200); Estimated Glomerular Filt Rate 109 ml/min (>60); GFR (African American) 132 ML/MIN (>60); Globulin 3.3 g/dL (1.3-3.2); Glucose 93 mg/dl (74-100); HDL Cholesterol 44 mg/dl (40-60); Potassium 4.2 mmoL/L (3.5-5.1); Sodium 141 mmol/L (136-145); Total Protein,Serum 7.8 g/dl (6.3-8.2); Triglycerides 184 mg/dl (30-150); VLDL Cholesterol 37 mg/dL (0-40)
[2021-05-09 19:46] LABS: Direct LDL Cholesterol 122.74 mg/dL (100-129)
[2021-05-09 19:52] LABS: 25-OH Vitamin D, Total 39.5 ng/mL (30-100)
[2021-05-09 19:56] LABS: Free T4 (Free Thyroxine) 0.85 ng/dl (0.78-2.19)
[2021-05-09 20:07] LABS: Thyroid Stimulating Hormone 3.23 uIU/mL (0.465-4.68)
[2021-05-09 21:32] LABS: Erythrocyte Sedimentation Rate 84 mm/hr (0-20)
[2021-05-11 12:06] LABS: FSH 33.5 mIU/mL (.); LH 21.9 mIU/mL (.); Progesterone 0.1 ng/mL (.)
[2021-05-13 18:38] LABS: Estrogen 66 pg/mL (.)
== END ==
PROVIDERS: Visit Provider Emergency Medicine
DX: R19.7 Diarrhea, unspecified (principal); E55.9 Vitamin D deficiency, unspecified; Z79.899 Other long term (current) drug therapy
CPT/HCPCS: 80053; 80061; 82306; 82672; 83001; 83002; 84144; 84439; 84443; 85025; 85651

== ENCOUNTER → 2021-07-26 13:19 | Outpatient (CLI) | payer OTHER, SELFPAY ==
[2021-07-26 15:07] LABS: Amphetamine/Metha Screen,Urine Negative ng/ml (<1000)
[2021-07-26 15:08] LABS: Barbiturates Screen,Urine Negative ng/ml (<200)
[2021-07-26 15:09] LABS: Benzodiazepines Screen,Urine Negative ng/ml (<200)
[2021-07-26 15:10] LABS: Cannabinoid Screen,Urine Positive ng/ml (<50); Cocaine Screen,Urine Negative ng/ml (<300)
[2021-07-26 15:11] LABS: Methadone Screen,Urine Negative ng/ml (<300)
[2021-07-26 15:12] LABS: Opiate Screen,Urine Negative ng/ml (<300)
[2021-07-26 15:15] LABS: Phencyclidine Screen,Urine Negative ng/ml (<25)
== END ==
PROVIDERS: Visit Provider Family Medicine
DX: Z79.899 Other long term (current) drug therapy (principal)
CPT/HCPCS: 80305

== ENCOUNTER → 2022-09-03 14:14 | Outpatient (CLI) | payer MEDICARE, OTHER, SELFPAY ==
[2022-09-03 20:04] LABS: Basophils # 0.1 K/mm3 (0-0.2); Basophils % 0.8 % (0.1-2.0); Eosinophils # 0.3 K/mm3 (0.0-0.4); Eosinophils % 2.4 % (0.1-12.0); Hematocrit 41.5 % (37.0-47.0); Hemoglobin 13.4 g/dL (12.2-16.2); Lymphocytes # 2.4 K/mm3 (0.7-4.5); Lymphocytes % 21.5 % (10-50); Mean Corpuscular HGB Conc 32.3 g/dL (31.8-35.4); Mean Corpuscular Hemoglobin 30.4 pg (27.0-31.2); Mean Corpuscular Volume 94.2 fl (81-99); Mean Platelet Volume 8.9 fl (7.4-10.4); Monocytes # 0.5 K/mm3 (0.1-1.0); Monocytes % 4.5 % (1.7-9.3); Neutrophils % 70.8 % (37.0-80.0); Platelet Count 267 K/mm3 (142-424); Red Cell Distribution Width 14.3 % (11.5-17.5); White Blood Count 11.4 K/mm3 (4.8-10.8)
[2022-09-03 20:11] LABS: Alanine Aminotransferase 33 U/L (12-78); Albumin Level 4.3 g/dl (3.5-5.0); Albumin/Globulin Ratio 1.6 (1.1-1.8); Alkaline Phosphatase 99 U/L (38-126); Anion Gap 11.9 mEq/L (5-15); Aspartate Amino Transferase 35 U/L (14-36); Bilirubin,Total 0.3 mg/dl (0.2-1.3); Blood Urea Nitrogen 8 mg/dl (7-17); Calcium 9.9 mg/dl (8.4-10.2); Carbon Dioxide 29 mmol/L (22.0-30.0); Chloride 100 mmol/L (98-107); Chol/HDL Ratio 3.7 (1-3.5); Cholesterol 158 mg/dl (140-200); Estimated Glomerular Filt Rate 134 ml/min (>60); GFR (African American) 162 ML/MIN (>60); Globulin 2.7 g/dL (1.3-3.2); Glucose 127 mg/dl (74-100); HDL Cholesterol 43 mg/dl (40-60); Potassium 3.9 mmoL/L (3.5-5.1); Sodium 137 mmol/L (136-145); Triglycerides 207 mg/dl (30-150); VLDL Cholesterol 41 mg/dL (0-40)
[2022-09-03 20:22] LABS: Direct LDL Cholesterol 79.84 mg/dL (100-129)
[2022-09-03 20:28] LABS: 25-OH Vitamin D, Total 15.2 ng/mL (30-100)
== END ==
PROVIDERS: PCP Emergency Medicine; Visit Provider Emergency Medicine
DX: R53.83 Other fatigue (principal); I10 Essential (primary) hypertension; E55.9 Vitamin D deficiency, unspecified
CPT/HCPCS: 80053; 80061; 82306; 84443; 85025

== ENCOUNTER → 2023-04-29 11:05 | Outpatient (CLI) | payer MEDICAID, SELFPAY ==
--- NOTE | 2023-04-29 11:05 | MM_ITS ---
PROCEDURE INFORMATION: Exam: MG Bilateral Screening 3D Mammography Exam date and time: 04/29/2023 10:56 AM Age: 43 years old Clinical indication: Screening mammogram TECHNIQUE: Imaging protocol: Bilateral Screening tomosynthesis and 2D mammography including computer-aided detection (CAD) when performed. COMPARISON: 1. MG MM CLIP PLACEMENT RT 04/05/2020 11:17 AM 2. MG MM STEREOTACTIC LOC RT 04/05/2020 10:09 AM 3. MG MM DIG MAMM DX UNILAT RT CAD 03/09/2020 1:36 PM 4. MG MM DIG SCREENING MAMM BI W/CAD 02/23/2020 1:57 PM FINDINGS: MAMMOGRAPHY: Breast composition: There are scattered areas of fibroglandular density. Mass: None. Architectural distortion: No new or suspicious architectural distortion. Calcifications: No new or suspicious calcifications are present Asymmetric density: No new or suspicious asymmetric density is present Skin thickening: None. Axillary adenopathy: None. IMPRESSION: No mammographic evidence of malignancy. Recommend annual screening mammography unless otherwise clinically indicated. ASSESSMENT: BI-RADS category 1: Negative
== END ==
LOC: RAD 11:05
PROVIDERS: PCP Emergency Medicine; Visit Provider Emergency Medicine
DX: Z12.31 Encounter for screening mammogram for malignant neoplasm of breast (principal)
CPT/HCPCS: 77063; 77067

== ENCOUNTER 2024-11-12 15:00 | Outpatient (RCR) | payer MEDICARE, MEDICAID, SELFPAY ==
--- NOTE | 2024-10-20 13:32 | HMH.PTOPWND ---
Rehab Outpt Wound Evaluation Rehab OP Wound Evaluation Start: 10/20/24 13:15 Freq: Status: Active Protocol: Document 10/20/24 13:15 [id number] (Rec: 10/20/24 13:32 PHORJAYCE [id number]) E-signed By Jeremiah Woo, PT Subjective/History History History This is the initial PT eval for Khadijah Lamb, 44 yowf who presents with L LE chronic lymphedema for several years and open wounds x ~ 1-2 mos this episode with insidious onset of symptoms. She Reports significant weeping drainage from the L LE at this time. She is not currently being prescribed abx per her report. She reports severe pain that is constant throughout the L lower leg. She has PMH of appy, CCY, 2 C- sections, partial hysterectomy , obesity. Subjective Subjective Pain rated 10/10 at this time, although pt shows no outward signs of pain. 3/4 TTP to L lower leg. Severe erythema this date. Large amounts of serous drainage noted. 2+ pitting edema to L lower leg and MOD fibrotic edema throughout L LE. New diagnosis of cancer in past 12 No months? Wound Eval Wound Anterior Joyce Wound Type Stasis Ulcer Is This a Chronic Wound Yes Wound Length (cm) 11.4 Wound Width (cm) 10.1 Wound Depth (cm) 0.1 Wound Bed Appearance Beefy Red,[place] Wound Margins Description Indistinct Surrounding Tissue Appearance Bright Red Edema Type Pitting Edema Degree 2+ Query Text:1+ Trace, Barely Detectable, Rebound 15-30 seconds 2+ Moderate, Slight Indentation, Rebound 10-20 seconds 3+ Deep, Deeper Indentation, Rebound > 30 seconds 4+ Very Deep, Rebound > 60 seconds Edema Appearance Weeping,Red Drainage Description Serous Drainage Amount Large Primary Dressing Silver Dressing Comment opticell Ag Comment optilock, 2 layer calamine compression wrap Wound Debridement Method Gauze,Mechanical Wound Debridement Amount of Tissue Minimal Removed Dressing Change Patient Tolerance Tolerated Well Lymphedema Eval Classification of Lymphedema Secondary Lymphedema Yes Stemmer's sign Stemmer's Sign yes Stage of Lymphedema Lymphedema stages Stage II (Pitting edema, increased fibrosis w/ decreased pitting) Skin Changes Dry Skin Yes Taut, Shiny Skin Yes Skin Folds Yes Hyperkeratosis Yes Redness Yes Discoloration of Skin Yes Other Changes Yes Pain Scale Pain Scale (0-10) 10 Affected Extremities Areas Affected by Lymphedema/Edema Right Lower Extremity,Left Lower Extremity Manual Lymphatic Drainage Treatment Area MLD Treatment Area Right Lower Extremity,Left Lower Extremity Wound Problems/Impairments Impairments Problems/Impairmments Palpation Tenderness,Impaired Shower/Bathing,Increased Edema ,Lymphedema Present,Wound Care Needs,Subjective C/O Pain, Impaired Self Care/Self Management Prognosis Rehab Potential Good Comment Skilled therapy is indicated to reduce overall edema burden , reduce pain and tenderness, and decrease wound surface area in order to aid pt return to PLOF. Clinical Impression Consistent with Diagnosis Yes Additional details: also S81.812 L lower leg open wound Short Term Goals Number of Weeks 4 Decreased Palpation Tenderness Yes: 2/4 L lower leg Decrease Edema Yes: 1+ pitting edema L lower leg Decrease Lymphedema Yes: MIN fibrotic edema L LE Decrease Wound Area by 25% Decrease Subjective C/O Pain Yes: 8/10 L LE Decrease Girth Measurments by (cm) Yes: L LE total by 5 cm Microbiology Coordinator Goals Number of Weeks 8 Decreased Palpation Tenderness Yes: 1/4 L lower leg Decrease Edema Yes: No pitting edema L lower leg Decrease Lymphedema Yes: No fibrotic edema L LE Decrease Wound Area Yes: by 75% Decrease Subjective C/O Pain Yes: 5/10 L LE Patient to be Ind w/ HEP Yes Decrease Girth Measurments by (cm) Yes: L LE total by 15 cm Outpatient Therapy Plan of Care Treatment Plan May Include Therapeutic Exercise Including Home Yes Exercise Program Manual Therapy Techniques Yes Neuromuscular Re-education Yes Therapeutic Activities to Return to Yes Previous Functional/Work Level ADL/Self Care Education Yes Orthotics/Bracing/Splinting Yes Manual Lymphatic Drainage Yes Wound Care Yes Eval/Re-Eval Yes Frequency Times per week 2 Duration Number of Weeks 8 Addendums This patient is a candidate for social No or vocational rehab? Patient/Guardian verbally acknowledges Yes understanding of treatment program and consents to further treatment? Patient/Guardian verbally acknowledges Yes understanding of diagnosis, prognosis and goals for treatment? Eval Complexity PT Charges 57425 - High Complexity PHYSICIAN CERTIFICATION: I certify the specified therapy services for Khadijah Lamb are required, authorized, and reviewed every 30 days.
== END 2024-11-12 23:59 | disposition home or self-care (01) ==
LOC: PT 15:00
PROVIDERS: PCP Family Medicine; Visit Provider Family Medicine
DX: I89.0 Lymphedema, not elsewhere classified (principal); R21 Rash and other nonspecific skin eruption
CPT/HCPCS: 97163; 97597; 97598

== ENCOUNTER 2024-12-15 09:18 | Outpatient (POV) | payer MEDICARE, MEDICAID, SELFPAY ==
--- NOTE | 2024-12-15 09:20 | A.OFFVIS_ITS ---
HPI Data of Consult Patient: new to practice Consult date: 12/15/24 Requesting Physician: Krissy Ramires APRN Primary Care Provider: Krissy Donis APRN Consult Narrative Reason for consult: Bilateral leg pain History of present illness: Ms. Lamb is a 44 year old female who presents today as a new patient. She is a referral from Krissy. Today she rates her pain an 8 out of 10. Patient states she has chronic pain in both her legs and is currently going through cellulitis in both of these extremities. Patient does state that she has had chronic neuropathy for years that is progressively worsened. Patient does state that previously she had been on gabapentin for 7+ years and that she had been getting this from her primary care. She states she recently had a dental procedure and got a short-term dose of pain medication and then when she went for her regular follow-up and medication refill Dr. Hodges's office would not send any additional prescriptions on her gabapentin. Patient states that then she was sent to Krissy Donis to see about taking over this medication however she was told from that office that due to her Suboxone therapy use that she would not be able to prescribe the gabapentin and then was sent to our office. Patient states that she is just looking for someone to take over the gabapentin prescription. She states this is what has always helped her in the past.Patient is currently managed with Suboxone therapy and gabapentin 800 mg 3 times a day from an outside provider. Her Osiel has been reviewed. CC: Krissy Ramires APRN [facility] Disclaimer: The information contained in this section may have been updated after the patient was seen, as this information can be updated by other users. Medical History Vasomotor symptoms due to menopause Tobacco use disorder Obesity History of seizures GERD (gastroesophageal reflux disease) Depression Lymphedema Cellulitis Neuropathic pain Surgical History History of appendectomy History of hysterectomy History of delivery History of cholecystectomy History of tonsillectomy Family History Father Heart attack Coronary artery disease COPD (chronic obstructive pulmonary disease) Mother Hyperlipidemia Hypertension Social History Smoking Status: Current every day smoker tobacco type: cigarettes packs per day: 1 second hand exposure: No alcohol intake: never substance use type: former substance user current occupational status: disabled Travel in the last 8 weeks: None household members: significant other housing: house marital status: single current occupational exposures/hazards: No caffeine: Yes Have you lived/traveled outside [place] in past 30 days?: No Contact w/someone who lives/traveled outside [place] past 30 days?: No Exposure to someone with infectious disease in past 14 days?: No Do you have a fever (greater than 100.4 F or 38 C)?: No Have you tested positive for COVID-19: No Exposed to someone with COVID-19 in past 14 days?: No Do you have a sore throat?: No Do you have a cough?: No Do you have any weakness?: No Do you have any diarrhea?: No Are you experiencing any unusual bleeding?: No Do you have any muscle aches/pain?: No Do you have any abdominal pain?: No Are you experiencing loss of taste or smell?: No Review of Systems Review of Systems Review of systems:: pertinent systems reviewed and negative unless documented below Review of systems (narrative): Review of Systems: General: No recent weight changes, no fever, no sleep disturbances Respiratory: No cough, no shortness of air, no recurring pulmonary infections Cardiovascular/peripheral vascular: No chest pain, no palpitations, no edema, no shortness of breath Gastrointestinal: No new onset incontinence, normal bowel movements reported Genitourinary: No new onset incontinence Musculoskeletal: Bilateral leg pain Psychiatric: [Normal mood/affect] Neurological: [Denies weakness in extremities], [denies balance issues] Meds Home Medications and Allergies Home Medications ?Medication ?Instructions ?Recorded ?Confirmed ?Type albuterol sulfate 90 mcg/actuation See Rx Instructions .Route 10/03/20 11/25/24 History aerosol inhaler .COMPLEX PRN soa buprenorphine 8 mg-naloxone 2 mg 2 tab sublingual DAILY 09/12/21 11/25/24 History sublingual tablet cholecalciferol (vitamin D3) 50 150 mcg (3 x 50 mcg (2,000 unit)) 08/26/24 11/25/24 Rx mcg (2,000 unit) capsule PO DAILY #90 caps citalopram 40 mg tablet 40 mg PO DAILY #30 tabs 08/26/24 11/25/24 Rx furosemide 20 mg tablet (Lasix) 20 mg PO Q OTHER DAY #20 tabs 08/26/24 11/25/24 Rx levetiracetam 500 mg tablet See Rx Instructions .Route 08/26/24 11/25/24 Rx .COMPLEX #180 tabs omeprazole 40 mg capsule,delayed See Rx Instructions .Route 08/26/24 11/25/24 Rx release .COMPLEX #90 caps potassium chloride 20 mEq See Rx Instructions .Route 08/26/24 11/25/24 Rx tablet,extended release(part/cryst) .COMPLEX #90 tabs silver sulfadiazine 1 % topical 1 applic topical BID #400 grams 11/11/24 11/25/24 Rx cream (Silvadene) ibuprofen 800 mg tablet 800 mg PO Q8H PRN pain #60 tabs 11/25/24 11/25/24 Rx New Prescriptions to Start Prescriptions: Allergies Allergy/AdvReac Type Severity Reaction Status Date / Time acetaminophen (From [facility]) Allergy Unknown UNKNOWN Verified 11/25/24 11:12 butalbital (From [facility]) Allergy Unknown UNKNOWN Verified 11/25/24 11:12 caffeine (From [facility]) Allergy Unknown UNKNOWN Verified 11/25/24 11:12 codeine (CODEINE) Allergy Unknown SEIZURE, Verified 11/25/24 11:12 N/V Objective Narrative: Physical Exam: General: Alert and oriented x3, no acute distress, pleasant and cooperative Lungs: Respirations even and unlabored, symmetrical chest expansion Eyes: PERRL Musculoskeletal: Unassessed Neurological: Speech clear, no gross sensory deficit Assessment and Plan *Assessment and plan (1) Neuropathic pain: Status: Acute Category: Medical Code(s): M79.2 - Neuralgia and neuritis, unspecified (2) Acquired lymphedema of leg: Status: Acute Category: Medical Code(s): I89.0 - Lymphedema, not elsewhere classified (3) Cellulitis of leg without foot, left: Status: Acute Category: Medical Code(s): L03.116 - Cellulitis of left lower limb (4) Chronic pain of lower extremity, bilateral: Status: Acute Category: Medical Code(s): M79.604 - Pain in right leg; M79.605 - Pain in left leg; G89.29 - Other chronic pain Plan I did discuss with the patient that we are conservative therapy office and that we do a lot of injections or things of that nature. Patient was counseled that we do have an office policy that we do not prescribe any scheduled medications for new patients unless there is extenuating circumstances. I did apologize to the patient that she was not given this information prior to this appointment. Patient was not assessed in office due to her getting up and leaving following our conversation that we would not be taking over the gabapentin prescription. Patient was not given a follow-up appointment. Patient has been instructed to contact the clinic with any concerns before the next appointment. Dr. Grijalva has reviewed this note and agrees with this plan of care. This note was dictated using voice recognition software and make contain errors or omissions. All injections are used with Lidocaine, Bupivacaine and Depo Medrol. Occasionally urine drug screen is needed to verify patient's compliance with our office pain contract. This is ordered based off specific treatments related to chronic pain with the potential to abuse certain medications.
[2024-12-15 11:50] VITALS: BP 139/70; PULSE 77; RESP 18; O2SAT 97; BMI 47.5
== END 2024-12-15 23:59 | disposition home or self-care (01) ==
LOC: SC.PAIN 09:19
PROVIDERS: PCP Nurse Practitioner Family; Visit Provider Nurse Practitioner Family
DX: M79.2 Neuralgia and neuritis, unspecified (principal); I89.0 Lymphedema, not elsewhere classified; L03.116 Cellulitis of left lower limb; M79.604 Pain in right leg; M79.605 Pain in left leg; G89.29 Other chronic pain; F17.210 Nicotine dependence, cigarettes, uncomplicated
CPT/HCPCS: 99202; G0463